=== PATIENT | female | born 1985 | race African-American/Black ===

== ENCOUNTER 2016-08-12 17:53 | Emergency (ER) | payer OTHER ==
[~2016-08-12] VITALS: Ht 175.3 cm; Wt 61.7 kg
[~2016-08-12 17:53] MED LIST: ONDA4TAB10 PO; PANT40TA5 PO
[2016-08-12 18:09] VITALS: BP 115/60
--- NOTE | 2016-08-12 19:09 | PHYS DOC ---
Past Medical History Past Medical History: Asthma, GERD, IBS, Other Additional Past Medical Histor: acid reflux, stomach issues Past Surgical History: Appendectomy, Hysterectomy Additional Past Surgical Histo: d&C Alcohol Use: None Drug Use: None Adult General Chief Complaint Chief Complaint: SKIN RASH/ABSCESS [facility] Patient is a 31 year old female presents to the emergency department stating that she woke up the swelling with a generalized rash throughout her body. She states that she has not changed any detergents soaps denies any change in clothing that has not been washed. Patient states she's had no new clothing or new cologne. He denies any shortness of air difficulty breathing. She states that she did take some Benadryl which seemed to have helped with the rash. Review of Systems Review of Systems Constitutional: Denies fever or chills [] Eyes: Denies change in visual acuity, redness, or eye pain [] HENT: Denies nasal congestion or sore throat [] Respiratory: Denies cough or shortness of breath [] Cardiovascular: No additional information not addressed in HPI [] GI: Denies abdominal pain, nausea, vomiting, bloody stools or diarrhea [] : Denies dysuria or hematuria [] Musculoskeletal: Denies back pain or joint pain [] Integument: generalized rash denies skin lesions [] Neurologic: Denies headache, focal weakness or sensory changes [] Allergies Allergies Allergies Coded Allergies Type Severity Reaction Last Updated Verified morphine Allergy Severe Anaphylaxis 05/25/13 Yes Physical Exam Physical Exam Constitutional: Well developed, well nourished, no acute distress, non-toxic appearance. [] HENT: Normocephalic, atraumatic, bilateral external ears normal, oropharynx moist, no oral exudates, nose normal. [] Eyes: PERRLA, EOMI, conjunctiva normal, no discharge. [] Neck: Normal range of motion, no tenderness, supple, no stridor. [] Cardiovascular:Heart rate regular rhythm, no murmur [] Lungs & Thorax: Bilateral breath sounds clear to auscultation [] Skin: Warm, dry, no erythema, patient was noted to have a red papular type rash throughout the body. No drainage or discharge noted from the areas. Back: No tenderness Extremities: No tenderness, no cyanosis, no clubbing, ROM intact, no edema. [] Neurologic: Alert and oriented X 3, normal motor function, normal sensory function, no focal deficits noted. [] Psychologic: Affect normal, judgement normal, mood normal. [] Current Patient Data Vital Signs Vital Signs Date Time Temp Pulse Resp B/P Pulse Ox O2 Delivery O2 Flow Rate FiO2 08/12/16 18:09 98.1 80 18 115/60 100 Room Air 98.1 EKG EKG [] Radiology/Procedures Radiology/Procedures [] Course & Med Decision Making Course & Med Decision Making Pertinent Labs and Imaging studies reviewed. (See chart for details) We'll have patient continue using the Benadryl at home 25 mg every 4-6 hours for itching she was instructed this medication will cause drowsiness do not take any be alert and oriented. Patient will also be provided with prednisone 40 mg daily for the next 7 days. Recommended following up with her primary care physician. Patient agrees with discharge instructions treatment regimens and follow-up recommendations. Since symptoms to return back to emergency department as been provided. Patient will be discharged home in stable condition. [] Dragon Disclaimer Dragon Disclaimer This electronic medical record was generated, in whole or in part, using a voice recognition dictation system. Departure Departure Impression: Primary Impression: Contact dermatitis Disposition: HOME, SELF-CARE Condition: STABLE Referrals: NO PCP (PCP) Patient Instructions: Contact Dermatitis, [id number] Additional Instructions: You've been evaluated for your rash. You have had contact dermatitis of unknown origin. Benadryl 25 mg every 4-6 hours. This medication will cause drowsiness do not take any be alert and oriented. Prednisone as prescribed. Keep the areas cool clean and dry. Follow-up to primary care physician next week. Return back to emergency department sign symptoms of become worse. Scripts Prednisone 20 Mg [id number] Mg PO DAILY #14 TAB Prov:OLEGARIO HOLLEY APRN 08/12/16 OLEGARIO HOLLEY APRN Aug 12, 2016 19:09
[2016-08-12] MEDS ORDERED: PRED20TA PO (19:14)
== END 2016-08-12 19:21 | disposition home or self-care (01) ==
LOC: ER 17:53
DX: L25.9 Unspecified contact dermatitis, unspecified cause (principal); K58.9 Irritable bowel syndrome, unspecified; K21.9 Gastro-esophageal reflux disease without esophagitis; J45.909 Unspecified asthma, uncomplicated; Z88.5 Allergy status to narcotic agent
CPT/HCPCS: 99283

== ENCOUNTER 2017-01-03 13:58 | Emergency (ER) | payer OTHER ==
[~2017-01-03] VITALS: Ht 172.7 cm; Wt 60.8 kg
[~2017-01-03 13:58] MED LIST changes: +PRED20TA PO
[2017-01-03 14:10] VITALS: BP 107/67
[2017-01-03] MEDS ORDERED: CYCL10TA2 PO (14:47)
--- NOTE | 2017-01-03 14:47 | PHYS DOC ---
Past Medical History Past Medical History: Asthma, GERD, IBS, Other Additional Past Medical Histor: acid reflux, stomach issues Past Surgical History: Appendectomy, Hysterectomy, Other Additional Past Surgical Histo: d&C Alcohol Use: None Drug Use: None Adult General Chief Complaint Chief Complaint: Neck Pain [facility] HPI Patient is a 31 year old female presents to the emergency department stating that she tried to lift weights with her son when she felt a pull in her neck. She states she's been unable to turn her head to the left she is able to turn her head slightly to the right. She states that she is unable to put her head completely back or put her chin to her chest. She denies fever, chills or any nausea or vomiting. She denies any light sensitivity. She denies any nausea vomiting. She does state she took some Excedrin that seemed to have helped her headache. Patient states that she has not taken anything else for pain and discomfort. Denies any numbness or tingling in her lower extremities. Review of Systems Review of Systems Constitutional: Denies fever or chills [] Eyes: Denies change in visual acuity, redness, or eye pain [] HENT: Denies nasal congestion or sore throat [] Respiratory: Denies cough or shortness of breath [] Cardiovascular: No additional information not addressed in HPI [] GI: Denies abdominal pain, nausea, vomiting, bloody stools or diarrhea [] : Denies dysuria or hematuria [] Musculoskeletal: Complaint of neck pain and discomfort denies any joint pain Integument: Denies rash or skin lesions [] Neurologic: Denies headache, focal weakness or sensory changes [] Endocrine: Denies polyuria or polydipsia [] Allergies Allergies Allergies Coded Allergies Type Severity Reaction Last Updated Verified morphine Allergy Severe Anaphylaxis 05/25/13 Yes Physical Exam Physical Exam Constitutional: Well developed, well nourished, no acute distress, non-toxic appearance. [] HENT: Normocephalic, atraumatic, bilateral external ears normal, oropharynx moist, no oral exudates, nose normal. [] Eyes: PERRLA, EOMI, conjunctiva normal, no discharge. [] Neck: Normal range of motion, no tenderness, supple, no stridor. [] Cardiovascular:Heart rate regular rhythm, no murmur [] Lungs & Thorax: Bilateral breath sounds clear to auscultation [] Skin: Warm, dry, no erythema, no rash. [] Back: No cervical spine tenderness noted and no crepitus no deformities. Patient did have tenderness on bilateral paraspinal areas. Patient was able to turn her head slightly to the right. She declined to try to turn her head to the left. She declined to take tip her head back or place her chin to her chest. Patient with equal guide changer noted bilaterally. Upper extremity radial pulses are 2+. Cap refill brisk less than 2 seconds. Extremities: No tenderness, no cyanosis, no clubbing, ROM intact, no edema. [] Neurologic: Alert and oriented X 3, normal motor function, normal sensory function, no focal deficits noted. [] Psychologic: Affect normal, judgement normal, mood normal. [] Current Patient Data Vital Signs Vital Signs Date Time Temp Pulse Resp B/P (MAP) Pulse Ox O2 Delivery O2 Flow Rate FiO2 01/03/17 14:10 98.0 76 18 97 Room Air 98.0 EKG EKG [] Radiology/Procedures Radiology/Procedures [] Course & Med Decision Making Course & Med Decision Making Pertinent Labs and Imaging studies reviewed. (See chart for details) Patient has been accompanied to the emergency Department with 4 children. Children are rowdy and acting out in the emergency department. Patient does not have any increase headache pain and discomfort with the activity. Patient will be provided with Flexeril. She was instructed this medication will cause drowsiness do not take any be alert and oriented. Patient will be provided with a prescription to take at home. Recommended ibuprofen 800 mg every 8 hours with food stop taking few develop an upset stomach. Patient will be discharged home in stable condition with recommendations to follow-up with the primary care physician in the next 5-7 days. Signs and symptoms to return back to emergency parents been provided. All questions and concerns have been answered at patient' s bedside. [] Dragon Disclaimer Dragon Disclaimer This electronic medical record was generated, in whole or in part, using a voice recognition dictation system. Departure Departure Impression: Primary Impression: Acute torticollis Disposition: HOME, SELF-CARE Condition: STABLE Referrals: NO PCP (PCP) Patient Instructions: Torticollis, Acute Additional Instructions: Activity as tolerated. Medication as prescribed. Ibuprofen 800 mg every 8 hours with food stop taking few develop an upset stomach. Flexeril will cause drowsiness do not take any be alert and oriented. Ice packs on 20 minutes off 20 minutes several times a day. Follow-up to primary care physician in the next 7-10 days. Return back to emergency prior signs and symptoms of become worse. Scripts Cyclobenzaprine Hcl (CYCLOBENZAPRINE HCL) 10 Mg Tablet 1 TAB PO TID Y for MUSCLE SPASMS, #30 TAB Prov: OLEGARIO HOLLEY APRN 01/03/17 OLEGARIO HOLLEY APRN Jan 03, 2017 14:47
[2017-01-03] MEDS ORDERED: CYCLOBENZAPRINE 10 MG TABLET. PO ONE (15:00)
== END 2017-01-03 15:04 | disposition home or self-care (01) ==
LOC: ER 13:58
DX: M43.6 Torticollis (principal); J45.909 Unspecified asthma, uncomplicated; K21.9 Gastro-esophageal reflux disease without esophagitis; K58.9 Irritable bowel syndrome, unspecified; Z90.49 Acquired absence of other specified parts of digestive tract; Z90.710 Acquired absence of both cervix and uterus; Z88.5 Allergy status to narcotic agent
CPT/HCPCS: 99283

== ENCOUNTER 2017-11-26 08:35 | Emergency (ER) | payer OTHER ==
[2017-11-26] MEDS: IV NORMAL SALINE 1000ML BAG 1,000 ML IV (09:11)
[2017-11-26] MEDS: fentaNYL PF VIAL 100 MCG/2 ML VIAL IV ×2 (09:11→10:16)
[2017-11-26 09:12] LABS: ADD MAN DIFF? NO
[2017-11-26] MEDS: DICYCLOMINE HCL 10 MG CAPSULE PO (09:12)
[2017-11-26] MEDS: ONDANSETRON PF 4 MG/2 ML VIAL. IV ×2 (09:12→10:16)
[2017-11-26] MEDS: PANTOPRAZOLE IV PUSH 40 MG VIAL. IVP (09:12)
[2017-11-26 09:18] LABS: BASO % 0 % (0-3); BILIRUBIN,URINE NEGATIVE (NEG); CLARITY,URINE CLEAR; COLOR,URINE YELLOW; EOS % 0 % (0-3); GLUCOSE,URINE NEGATIVE (NEG); HEMATOCRIT 38.8 % (36.0-47.0); HEMOGLOBIN 13.3 g/dL (12.0-15.5); LYMPH % 11 % (24-48); MEAN CORPUSCULAR HEMOGLOBIN 33 pg (25-35); MEAN CORPUSCULAR HGB CONC 34 g/dL (31-37); MEAN CORPUSCULAR VOLUME 97 fL (79-100); MONO # 0.4 x10^3/uL (0.0-1.1); MONO % 4 % (0-9); NEUT # 7.8 x10^3uL (1.8-7.7); NEUT % 84 % (31-73); NITRITE,URINE NEGATIVE (NEG); PH,URINE 8.5; PLATELET COUNT 269 x10^3/uL (140-400); PROTEIN,URINE 100 mg/dL (NEG-TRACE); RED BLOOD COUNT 4.02 x10^6/uL (3.50-5.40); RED CELL DISTRIBUTION WIDTH 13.4 % (11.5-14.5); UROBILINOGEN,URINE 0.2 mg/dL (0.2 mg/dL); WHITE BLOOD COUNT 9.2 x10^3/uL (4.0-11.0)
[2017-11-26 09:25] LABS: ANION GAP 13 (6-14); BLOOD UREA NITROGEN 11 mg/dL (7-20); BUN/CREATININE RATIO 12 (6-20); CALCIUM 9.6 mg/dL (8.5-10.1); CARBON DIOXIDE 21 mmol/L (21-32); CHLORIDE 106 mmol/L (98-107); CREATININE 0.9 mg/dL (0.6-1.0); GFR 86.7; GLUCOSE 152 mg/dL (70-99); POTASSIUM 3.5 mmol/L (3.5-5.1); SODIUM 140 mmol/L (136-145)
[2017-11-26 09:26] LABS: BACTERIA,URINE MODERATE /HPF (0-FEW); SQUAMOUS EPITHELIAL CELL,UR OCC /LPF
[2017-11-26 09:28] LABS: ETHANOL < 10 mg/dL (0-10)
[2017-11-26 09:31] LABS: ALBUMIN 4.3 g/dL (3.4-5.0); ALBUMIN/GLOBULIN RATIO 1.2 (1.0-1.7); ALK PHOS 69 U/L (46-116); ALT (SGPT) 36 U/L (14-59); AST (SGOT) 27 U/L (15-37); LIPASE 77 U/L (73-393); TOTAL BILIRUBIN 0.6 mg/dL (0.2-1.0); TOTAL PROTEIN 7.8 g/dL (6.4-8.2)
[2017-11-26 09:34] LABS: BARBITURATES NEG (NEG); BENZODIAZEPINES NEG (NEG); CANNABINOIDS POS (NEG); COCAINE NEG (NEG); METHADONE NEG (NEG); OPIATES NEG (NEG); PHENCYCLIDINE NEG (NEG)
[2017-11-26 09:37] LABS: AMPHETAMINE/METHAMPHETAMINE NEG (NEG); ETHANOL, URINE NEG (NEG)
[2017-11-26] MEDS: KETOROLAC 30 MG/ML INJ. IV (10:17)
== END 2017-11-26 11:22 | disposition home or self-care (01) ==
LOC: ER 11:22
DX: N39.0 Urinary tract infection, site not specified (principal); R19.7 Diarrhea, unspecified; R11.2 Nausea with vomiting, unspecified; K21.9 Gastro-esophageal reflux disease without esophagitis; J45.909 Unspecified asthma, uncomplicated; K58.9 Irritable bowel syndrome, unspecified; Z90.49 Acquired absence of other specified parts of digestive tract; Z90.710 Acquired absence of both cervix and uterus; Z88.5 Allergy status to narcotic agent
CPT/HCPCS: 36415; 76700; 80053; 80307; 81001; 83690; 85025; 96361; 96365; 96375; 96376; 99285-25; C9113; G0480; J0690; J1885; J2405; J3010; J7030

== ENCOUNTER 2018-02-21 15:45 | Emergency (ER) | payer OTHER ==
[~2018-02-21] VITALS: Ht 175.3 cm; Wt 59.0 kg
[2018-02-21 15:45] VITALS: BP 123/83
[~2018-02-21 15:45] MED LIST changes: +CEPH500T PO; +CYCL10TA2 PO; +IBUP-1060 PO; +ONDA4TAB10 SL
[2018-02-21] MEDS ORDERED: IV NORMAL SALINE 1000ML BAG 1,000 ML IV ONE (16:15)
[2018-02-21] MEDS ORDERED: PANTOPRAZOLE IV PUSH 40 MG VIAL. IVP ONE (16:15)
[2018-02-21] MEDS ORDERED: DICYCLOMINE HCL 10 MG CAPSULE PO ONE (16:15)
[2018-02-21] MEDS ORDERED: PROCHLORPERAZINE 10 MG/2 ML VIAL. IV ONE (16:15)
[2018-02-21] MEDS ORDERED: KETOROLAC 30 MG/ML VIAL. IV ONE (16:15)
--- NOTE | 2018-02-21 16:16 | PHYS DOC ---
Past Medical History Past Medical History: Asthma, GERD, IBS, Other Additional Past Medical Histor: "stomach issues" Past Surgical History: Appendectomy, Hysterectomy, Other Additional Past Surgical Histo: d&C Alcohol Use: None Drug Use: None Adult General Chief Complaint Chief Complaint: ABDOMINAL PAIN [facility] HPI Patient is a 33 year old female with history of asthma, IBS, acid reflex, appendectomy, hysterectomy who presents today complaining of 7 out of 10 bilateral lower abdominal pain described as cramping that began at 4 AM this morning. Patient denies the pain waking her up. She is also complaining of nausea but no vomiting. Denies any diarrhea. Patient denies any fever. Patient states she has history of chronic abdominal pain due to IBS and follows up with a specialist at [facility]. She states she was put on new medications unknown name recently. Review of Systems Review of Systems Constitutional: Denies fever or chills [] Eyes: Denies change in visual acuity, redness, or eye pain [] HENT: Denies nasal congestion or sore throat [] Respiratory: Denies cough or shortness of breath [] Cardiovascular: No additional information not addressed in HPI [] GI: Reports abdominal pain with vomiting, denies bloody stools or diarrhea [] : Denies dysuria or hematuria [] Musculoskeletal: Denies back pain or joint pain [] Integument: Denies rash or skin lesions [] Neurologic: Denies headache, focal weakness or sensory changes [] All other systems were reviewed and found to be within normal limits, except as documented in this note. Current Medications Current Medications Current Medications Medications (Trade) Dose Ordered Sig/Wilfredo Start Time Stop Time Status Last Admin Dose Admin Dicyclomine HCl (Bentyl) 20 mg 1X ONCE 02/21/18 16:15 02/21/18 16:16 DC 02/21/18 16:19 20 MG Info (CONTRAST GIVEN -- Rx MONITORING) 1 each PRN DAILY PRN 02/21/18 17:00 02/23/18 16:59 Iohexol (Omnipaque 300 Mg/ml) 75 ml 1X ONCE 02/21/18 17:00 02/21/18 17:01 DC 02/21/18 17:05 75 ML Ketorolac Tromethamine (Toradol 30mg Vial) 30 mg 1X ONCE 02/21/18 16:15 02/21/18 16:16 DC 02/21/18 16:20 30 MG Pantoprazole Sodium (PROTONIX VIAL for IV PUSH) 40 mg 1X ONCE 02/21/18 16:15 02/21/18 16:16 DC 02/21/18 16:19 40 MG Prochlorperazine Edisylate (Compazine) 10 mg 1X ONCE 02/21/18 16:15 02/21/18 16:16 DC 02/21/18 16:19 10 MG Sodium Chloride 1,000 ml @ 1,000 mls/hr 1X ONCE 02/21/18 16:15 02/21/18 17:14 DC 02/21/18 16:20 1,000 MLS/HR Allergies Allergies Allergies Coded Allergies Type Severity Reaction Last Updated Verified morphine Allergy Severe Anaphylaxis 05/25/13 Yes Physical Exam Physical Exam Constitutional: Well developed, well nourished, no acute distress, non-toxic appearance. [] HENT: Normocephalic, atraumatic, bilateral external ears normal, oropharynx moist, no oral exudates, nose normal. [] Eyes: PERRLA, EOMI, conjunctiva normal, no discharge. [] Neck: Normal range of motion, no tenderness, supple, no stridor. [] Cardiovascular:Heart rate regular rhythm, no murmur [] Lungs & Thorax: Bilateral breath sounds clear to auscultation [] Abdomen: Bowel sounds normal, soft, no tenderness, no masses, no pulsatile masses. [] Skin: Warm, dry, no erythema, no rash. [] Back: No tenderness, no CVA tenderness. [] Extremities: No tenderness, no cyanosis, no clubbing, ROM intact, no edema. [] Neurologic: Alert and oriented X 3, normal motor function, normal sensory function, no focal deficits noted. [] Psychologic: Affect normal, judgement normal, mood normal. [] Current Patient Data Vital Signs Vital Signs Date Time Temp Pulse Resp B/P (MAP) Pulse Ox O2 Delivery O2 Flow Rate FiO2 02/21/18 15:45 98.0 100 20 123/83 (96) 98 Room Air 98.0 Lab Values Laboratory Tests Test 02/21/18 15:54 02/21/18 16:01 Urine Collection Type Unknown Urine Color Mireille Urine Clarity Clear Urine pH 6.0 Urine Specific [place] 1.025 Urine Protein Negative mg/dL (NEG-TRACE) Urine Glucose (UA) Negative mg/dL (NEG) Urine Ketones (Stick) Negative mg/dL (NEG) Urine Blood Negative (NEG) Urine Nitrite Negative (NEG) Urine Bilirubin Small (NEG) Urine Urobilinogen Dipstick 1.0 mg/dL (0.2 mg/dL) Urine Leukocyte Esterase Small (NEG) Urine RBC 0 /HPF (0-2) Urine WBC 1-4 /HPF (0-4) Urine Squamous Epithelial Cells Mod /LPF Urine Bacteria Few /HPF (0-FEW) Urine Mucus Mod /LPF Urine Opiates Screen Neg (NEG) Urine Methadone Screen Neg (NEG) Urine Barbiturates Neg (NEG) Urine Phencyclidine Screen Neg (NEG) Urine Amphetamine/Methamphetamine Neg (NEG) Urine Benzodiazepines Screen Neg (NEG) Urine Cocaine Screen Neg (NEG) Urine Cannabinoids Screen Pos (NEG) Urine Ethyl Alcohol Neg (NEG) White Blood Count 17.0 x10^3/uL (4.0-11.0) H Red Blood Count 4.03 x10^6/uL (3.50-5.40) Hemoglobin 13.3 g/dL (12.0-15.5) Hematocrit 39.0 % (36.0-47.0) Mean Corpuscular Volume 97 fL (79-100) Mean Corpuscular Hemoglobin 33 pg (25-35) Mean Corpuscular Hemoglobin Concent 34 g/dL (31-37) Red Cell Distribution Width 13.6 % (11.5-14.5) Platelet Count 273 x10^3/uL (140-400) Neutrophils (%) (Auto) 81 % (31-73) H Lymphocytes (%) (Auto) 11 % (24-48) L Monocytes (%) (Auto) 8 % (0-9) Eosinophils (%) (Auto) 0 % (0-3) Basophils (%) (Auto) 0 % (0-3) Neutrophils # (Auto) 13.8 x10^3uL (1.8-7.7) H Lymphocytes # (Auto) 1.8 x10^3/uL (1.0-4.8) Monocytes # (Auto) 1.3 x10^3/uL (0.0-1.1) H Eosinophils # (Auto) 0.0 x10^3/uL (0.0-0.7) Basophils # (Auto) 0.0 x10^3/uL (0.0-0.2) Segmented Neutrophils % 83 % (35-66) H Band Neutrophils % 3 % (0-9) Lymphocytes % 8 % (24-48) L Monocytes % 6 % (0-10) Platelet Estimate Adequate (ADEQUATE) Sodium Level 136 mmol/L (136-145) Potassium Level 4.1 mmol/L (3.5-5.1) Chloride Level 101 mmol/L (98-107) Carbon Dioxide Level 28 mmol/L (21-32) Anion Gap 7 (6-14) Blood Urea Nitrogen 16 mg/dL (7-20) Creatinine 0.8 mg/dL (0.6-1.0) Estimated GFR (Cockcroft-Gault) 98.8 BUN/Creatinine Ratio 20 (6-20) Glucose Level 104 mg/dL (70-99) H Calcium Level 9.4 mg/dL (8.5-10.1) Total Bilirubin 0.2 mg/dL (0.2-1.0) Aspartate Amino Transferase (AST) 21 U/L (15-37) Alanine Aminotransferase (ALT) 68 U/L (14-59) H Alkaline Phosphatase 72 U/L (46-116) Total Protein 7.9 g/dL (6.4-8.2) Albumin 3.9 g/dL (3.4-5.0) Albumin/Globulin Ratio 1.0 (1.0-1.7) Ethyl Alcohol Level < 10 mg/dL (0-10) Laboratory Tests 02/21/18 16:01 Laboratory Tests 02/21/18 16:01 EKG EKG [] Radiology/Procedures Radiology/Procedures []PROCEDURE: CT ABD PELV W/ IV CONTRST ONLY CT Abdomen and Pelvis With Intravenous Contrast: History: Chronic abdominal pain. Comparison: CT abdomen pelvis May 27, 2009. Technique: After administration of intravenous contrast, 75 mL Omnipaque-300, CT of the abdomen and pelvis was performed. Exposure: One or more of the following individualized dose reduction techniques were utilized for this examination: 1. Automated exposure control 2. Adjustment of the mA and/or kV according to patient size 3. Use of iterative reconstruction technique Findings: Evaluation of enteric structures may be limited by lack of oral contrast. Liver, spleen, pancreas, gallbladder, and bilateral adrenal glands are unremarkable. Bilateral kidneys enhance symmetrically. No bowel obstruction or inflammation is identified. Appendix is absent. Uterus is absent. Urinary bladder is unremarkable. No free air or free fluid is seen in the abdomen or pelvis. Perineal jewelry is seen. Impression: 1. No acute abnormality identified in the abdomen or pelvis. Electronically signed by: Cristhian Solano MD (02/21/2018 5:17 PM) [facility] DICTATED and SIGNED BY: CRISTHIAN SOLANO MD DATE: 02/21/181713 Course & Med Decision Making Course & Med Decision Making Pertinent Labs and Imaging studies reviewed. (See chart for details) This is a 33-year-old female patient presenting to the ED today with abdominal pain with vomiting that began this morning. Patient has history of chronic abdominal pain due to IBS. CBC with a WBC of 17.0, CMP with ALT of [address] of the abdomen and pelvic is negative for any acute findings. Urine analysis was noted for small amount of leukocytes and moderate amount of squamous cell epithelium. This is a contaminated specimen. Urine was sent for culture. Patient was discharged with Zofran and dicyclomine. Instructed to follow-up with her own specialist at [facility] as soon as possible. Patient's symptoms are well controlled right now with nausea medicine as well as Toradol. Dragon Disclaimer Dragon Disclaimer This electronic medical record was generated, in whole or in part, using a voice recognition dictation system. Departure Departure Impression: Primary Impression: Nausea and vomiting Additional Impression: Abdominal pain Disposition: 01 HOME, SELF-CARE Condition: STABLE Referrals: UNKNOWN PCP NAME (PCP) Follow-up with your specialist at [facility] as soon as possible Patient Instructions: Abdominal Pain, Nausea and Vomiting Additional Instructions: You were evaluated in the emergency room for abdominal pain with vomiting. Your work up in the emergency room was negative for any acute findings. Your urine was noted for small amount of infection. This specimen appears contaminated. We will culture the urine, we will call you if it grows infection and order you antibiotics. In the meantime take the prescribed medications as ordered. Follow- up with your own specialist at [facility] as soon as you can. Scripts Ondansetron (ZOFRAN ODT) 4 Mg Tab.rapdis 1 TAB SL Q8HRS, #15 TAB Prov: MUTAISHAAJEAN SAMPLE CLERK 02/21/18 Dicyclomine Hcl (DICYCLOMINE HCL) 20 Mg Tablet 1 TAB PO TID, #30 TAB 1 Refill Prov: JEAN OTERO APRN 02/21/18 Problem Qualifiers Primary Impression: Nausea and vomiting Vomiting type: unspecified Vomiting Intractability: unspecified Qualified Codes: R11.2 - Nausea with vomiting, unspecified Additional Impression: Abdominal pain Abdominal location: lower abdomen, unspecified Qualified Codes: R10.30 - Lower abdominal pain, unspecified FUNMILAYOSANTAJEAN GRICEL Feb 21, 2018 16:16
[2018-02-21 16:24] LABS: BASO % 0 % (0-3); EOS % 0 % (0-3); HEMOGLOBIN 13.3 g/dL (12.0-15.5); LYMPH # 1.8 x10^3/uL (1.0-4.8); LYMPH % 11 % (24-48); MEAN CORPUSCULAR HEMOGLOBIN 33 pg (25-35); MEAN CORPUSCULAR HGB CONC 34 g/dL (31-37); MEAN CORPUSCULAR VOLUME 97 fL (79-100); MONO # 1.3 x10^3/uL (0.0-1.1); MONO % 8 % (0-9); NEUT # 13.8 x10^3uL (1.8-7.7); NEUT % 81 % (31-73); PLATELET COUNT 273 x10^3/uL (140-400); RED BLOOD COUNT 4.03 x10^6/uL (3.50-5.40); RED CELL DISTRIBUTION WIDTH 13.6 % (11.5-14.5)
[2018-02-21 16:27] LABS: BILIRUBIN,URINE SMALL (NEG); CLARITY,URINE CLEAR; COLOR,URINE AMBER; NITRITE,URINE NEGATIVE (NEG); PROTEIN,URINE NEGATIVE (NEG-TRACE)
[2018-02-21 16:31] LABS: CALCIUM 9.4 mg/dL (8.5-10.1); CREATININE 0.8 mg/dL (0.6-1.0); GFR 98.8; POTASSIUM 4.1 mmol/L (3.5-5.1)
[2018-02-21 16:32] LABS: SQUAMOUS EPITHELIAL CELL,UR MOD /LPF
[2018-02-21 16:33] LABS: BACTERIA,URINE FEW /HPF (0-FEW); RBC,URINE 0 /HPF (0-2)
[2018-02-21 16:34] LABS: BARBITURATES NEG (NEG); BENZODIAZEPINES NEG (NEG); CANNABINOIDS POS (NEG); COCAINE NEG (NEG); METHADONE NEG (NEG); OPIATES NEG (NEG); PHENCYCLIDINE NEG (NEG)
[2018-02-21 16:38] LABS: AMPHETAMINE/METHAMPHETAMINE NEG (NEG)
[2018-02-21 16:38] LABS: ALBUMIN 3.9 g/dL (3.4-5.0); TOTAL BILIRUBIN 0.2 mg/dL (0.2-1.0); TOTAL PROTEIN 7.9 g/dL (6.4-8.2)
[2018-02-21 16:55] LABS: % BANDS 3 % (0-9); % LYMPHS 8 % (24-48); % MONOS 6 % (0-10); % SEGS 83 % (35-66); PLT ESTIMATE ADEQUATE (ADEQUATE)
[2018-02-21] MEDS ORDERED: CONTRAST GIVEN. MC PRN (17:00)
[2018-02-21] MEDS ORDERED: IOHEXOL 300 MG/ML 100ML VIAL. IV ONE (17:00)
--- NOTE | 2018-02-21 17:20 | RAD ---
CT Abdomen and Pelvis With Intravenous Contrast: History: Chronic abdominal pain. Comparison: CT abdomen pelvis May 27, 2009. Technique: After administration of intravenous contrast, 75 mL Omnipaque-300, CT of the abdomen and pelvis was performed. Exposure: One or more of the following individualized dose reduction techniques were utilized for this examination: 1. Automated exposure control 2. Adjustment of the mA and/or kV according to patient size 3. Use of iterative reconstruction technique Findings: Evaluation of enteric structures may be limited by lack of oral contrast. Liver, spleen, pancreas, gallbladder, and bilateral adrenal glands are unremarkable. Bilateral kidneys enhance symmetrically. No bowel obstruction or inflammation is identified. Appendix is absent. Uterus is absent. Urinary bladder is unremarkable. No free air or free fluid is seen in the abdomen or pelvis. Perineal jewelry is seen. Impression: 1. No acute abnormality identified in the abdomen or pelvis. Electronically signed by: Cristhian Solano MD (02/21/2018 5:17 PM) [facility]
[2018-02-21] MEDS ORDERED: DICY20TA3 PO (17:38)
[2018-02-21] MEDS ORDERED: ONDA4TAB10 SL (17:38)
== END 2018-02-21 17:50 | disposition home or self-care (01) ==
LOC: ER 15:45
DX: G89.29 Other chronic pain (principal); R10.30 Lower abdominal pain, unspecified; R11.2 Nausea with vomiting, unspecified; K21.9 Gastro-esophageal reflux disease without esophagitis; J45.909 Unspecified asthma, uncomplicated; K58.9 Irritable bowel syndrome, unspecified; Z90.49 Acquired absence of other specified parts of digestive tract; Z90.710 Acquired absence of both cervix and uterus; Z88.5 Allergy status to narcotic agent
CPT/HCPCS: 36415; 74177; 80053; 80307; 81001; 85007; 85025; 87086; 96361; 96374; 96375; 99285; C9113; G0480; J0780; J1885; J7030; Q9967; G0479

== ENCOUNTER 2019-02-13 10:28 | Emergency (ER) | payer OTHER ==
[~2019-02-13] VITALS: Ht 175.3 cm; Wt 68.0 kg
[~2019-02-13 10:28] MED LIST changes: +DICY20TA3 PO; -PANT40TA5 PO; +PANT40TA77 PO
--- NOTE | 2019-02-13 11:27 | PHYS DOC ---
Past Medical History Past Medical History: Asthma, GERD, IBS, Other Additional Past Medical Histor: "stomach issues" Past Surgical History: Appendectomy, Hysterectomy, Other Additional Past Surgical Histo: d&C Alcohol Use: None Drug Use: None Adult General Chief Complaint Chief Complaint: HIP PAIN HPI HPI Patient is a 34-year-old female who presents to the emergency department for evaluation. She states that she fell down some stairs a couple of days ago and has been having some persistent left-sided hip pain, worse with movement. She is able to ambulate. She denies any other injuries. She denies any numbness or weakness. Palpation and ambulation worsen her pain. There are no alleviating factors to her symptoms. Review of Systems Review of Systems Constitutional: Denies fever or chills [] Eyes: Denies change in visual acuity, redness, or eye pain [] HENT: Denies nasal congestion or sore throat [] Respiratory: Denies cough or shortness of breath [] GI: Denies abdominal pain, nausea, vomiting, bloody stools or diarrhea [] : Denies dysuria or hematuria [] Musculoskeletal: Denies back pain or joint pain, except the left hip. [] Integument: Denies rash or skin lesions [] Neurologic: Denies headache, focal weakness or sensory changes [] Current Medications Current Medications Current Medications Medications (Trade) Dose Ordered Sig/Wilfredo Start Time Stop Time Status Last Admin Dose Admin Ibuprofen (Motrin) 600 mg 1X ONCE 02/13/19 12:00 02/13/19 12:01 DC 02/13/19 11:54 600 MG Allergies Allergies Allergies Coded Allergies Type Severity Reaction Last Updated Verified morphine Allergy Severe Anaphylaxis 05/25/13 Yes Physical Exam Physical Exam PHYSICAL EXAM: CONSTITUTIONAL: Well developed, well nourished HEAD: normocephalic, atraumatic EENT: PERRL, EOMI. Conjunctivae normal color, sclerae non-icteric; moist mucous membranes. NECK: Supple, non-tender; no meningismus. LUNGS: Lungs CTA, breathing even and unlabored. Normal air movement. HEART: Regular rate and rhythm, no murmur CHEST: No deformity; non-tender ABDOMEN: The abdomen is soft, and non-tender, no masses or bruits. EXTREM: There is mild tenderness to palpation of the left hip diffusely, there is normal range of motion, without any gross deformity, the patient is able to ambulate, without any significant difficulty. The remainder the extremities are atraumatic, with Normal ROM; no deformity, no calf tenderness. Normal pulses palpable in all extremities. There is no pedal edema. SKIN: No rash; no diaphoresis NEURO: Alert; normal speech and cognition; CN's grossly intact; strength grossly intact without focal deficit. BACK: No CVA TTP. Current Patient Data Vital Signs Vital Signs Date Time Temp Pulse Resp B/P (MAP) Pulse Ox O2 Delivery O2 Flow Rate FiO2 02/13/19 12:15 97.9 113 20 130/86 (101) 97 Room Air 97.9 EKG EKG [] Radiology/Procedures Radiology/Procedures PROCEDURE: HIP LEFT 2V WITH PELVIS AP view of the pelvis and two-view study of the left hip Clinical indications: Fall and pain. FINDINGS: No acute fracture or dislocation or lytic process is evident. No diastases of the symphysis pubis or either SI joint is seen. IMPRESSION: No acute osseous abnormality. [] Course & Med Decision Making Course & Med Decision Making Pertinent Imaging studies reviewed. (See chart for details) [] Dragon Disclaimer Dragon Disclaimer This electronic medical record was generated, in whole or in part, using a voice recognition dictation system. Departure Departure Impression: Primary Impression: Contusion, hip Disposition: 01 HOME, SELF-CARE Condition: STABLE Referrals: UNKNOWN PCP NAME (PCP) Patient Instructions: Contusion, Hip Injury, Hip Pain Additional Instructions: Ibuprofen 400-600 mg every 6 hours as needed for pain. NISHA BOBBY MD Feb 13, 2019 11:27
[2019-02-13] MEDS ORDERED: IBUPROFEN 200 MG TABLET. PO ONE (12:00)
--- NOTE | 2019-02-13 12:12 | RAD ---
AP view of the pelvis and two-view study of the left hip Clinical indications: Fall and pain. FINDINGS: No acute fracture or dislocation or lytic process is evident. No diastases of the symphysis pubis or either SI joint is seen. IMPRESSION: No acute osseous abnormality. Electronically signed by: Barrett Dwyer MD (02/13/2019 12:09 PM) [id number]
[2019-02-13 12:15] VITALS: BP 130/86
== END 2019-02-13 12:45 | disposition home or self-care (01) ==
LOC: ER 10:28
DX: S70.02XA Contusion of left hip, initial encounter (principal); J45.909 Unspecified asthma, uncomplicated; K21.9 Gastro-esophageal reflux disease without esophagitis; Z90.89 Acquired absence of other organs; Z90.710 Acquired absence of both cervix and uterus; Z88.5 Allergy status to narcotic agent; W10.9XXA Fall (on) (from) unspecified stairs and steps, initial encounter; Y93.89 Activity, other specified; Y92.89 Other specified places as the place of occurrence of the external cause; Y99.8 Other external cause status
CPT/HCPCS: 73502; 99284

== ENCOUNTER 2019-05-14 07:31 | Emergency (ER) | payer MEDICAID, OTHER ==
[~2019-05-14] VITALS: Ht 175.3 cm; Wt 72.6 kg
[2019-05-14 08:00] VITALS: BP 112/69
[2019-05-14] MEDS ORDERED: TRAM-48 PO (08:23)
[2019-05-14] MEDS ORDERED: AZIT250T PO (08:23)
[2019-05-14] MEDS ORDERED: BENZ100C PO (08:23)
[2019-05-14] MEDS ORDERED: NAPR-683 PO (08:25)
--- NOTE | 2019-05-14 08:25 | PHYS DOC ---
Past Medical History Past Medical History: Anxiety, Depression, IBS, Other Additional Past Medical Histor: CHRONIC STOMACH PROBLEMS,PTSD, Past Surgical History: Appendectomy, Hysterectomy Additional Past Surgical Histo: d&C Alcohol Use: None Drug Use: None Adult General Chief Complaint Chief Complaint: EARACHE/EAR PAIN HPI HPI Patient is a 34 year old with history of anxiety and depression, IBS, PTSD who presents with complaint of earache. Patient complaining of upper respiratory infection symptoms for one week with cough and congestion right ear pain for the last 2 days and rated her pain 10 over 10. Patient denies ear discharge, fever and chills, . Review of Systems Review of Systems Constitutional: Denies fever or chills [] Eyes: Denies change in visual acuity, redness, or eye pain [] HENT: Post nasal congestion and earache Respiratory: Reports cough Cardiovascular: No additional information not addressed in HPI [] GI: Denies abdominal pain, nausea, vomiting, bloody stools or diarrhea [] : Denies dysuria or hematuria [] Musculoskeletal: Denies back pain or joint pain [] Integument: Denies rash or skin lesions [] Neurologic: Denies headache, focal weakness or sensory changes [] Endocrine: Denies polyuria or polydipsia [] All other systems were reviewed and found to be within normal limits, except as documented in this note. Allergies Allergies Allergies Coded Allergies Type Severity Reaction Last Updated Verified morphine Allergy Severe Anaphylaxis 05/25/13 Yes Physical Exam Physical Exam Constitutional: Well developed, well nourished, no acute distress, non-toxic appearance. [] HENT: Normocephalic, atraumatic, right tympanic membrane erythema, oropharynx moist, no oral exudates, nose normal. [] Eyes: PERRLA, EOMI, conjunctiva normal, no discharge. [] Neck: Normal range of motion, no tenderness, supple, no stridor. [] Cardiovascular:Heart rate regular rhythm, no murmur [] Lungs & Thorax: Bilateral breath sounds clear to auscultation [] Abdomen: Bowel sounds normal, soft, no tenderness, no masses, no pulsatile masses. [] Skin: Warm, dry, no erythema, no rash. [] Back: No tenderness, no CVA tenderness. [] Extremities: No tenderness, no cyanosis, no clubbing, ROM intact, no edema. [] Neurologic: Alert and oriented X 3, normal motor function, normal sensory function, no focal deficits noted. [] Psychologic: Affect normal, judgement normal, mood normal. [] Current Patient Data Vital Signs Vital Signs Date Time Temp Pulse Resp B/P (MAP) Pulse Ox O2 Delivery O2 Flow Rate FiO2 05/14/19 08:00 98.3 103 16 112/69 (83) 95 Room Air 98.3 EKG EKG [] Radiology/Procedures Radiology/Procedures [] Course & Med Decision Making Course & Med Decision Making discharge: I've spoken with the patient and/or caregivers. I've explained the patient's condition, diagnosis and treatment plan based on information available to me at this time. I've answered the patient's and/or caregivers questions and addressed any concerns. The patient and/or caregivers have a good understanding the patient's diagnosis, condition and treatment plan as can be expected at this point. Vital signs have been stabilized. The patient's condition is stable for discharge from the emergency department. The patient will pursue further outpatient evaluation with her primary care provider or other designated consulting physician as outlined in the discharge instructions. Patient and/or caregivers are agreeable to this plan of care and follow-up instructions have been explained in detail. The patient and/or caregivers have received these instructions in written format and expressed understanding of these discharge instructions. The patient and her caregivers are aware that if any significant change in condition or worsening of symptoms should prompt him to immediately return to this of the closest emergency department. If an emergent department is not readily available I would encourage him to call 911. Izzy Disclaimer Serenaon Disclaimer This electronic medical record was generated, in whole or in part, using a voice recognition dictation system. Departure Departure Impression: Primary Impression: Right otitis media Additional Impression: Upper respiratory infection Disposition: HOME, SELF-CARE (at 0 [phone]) Condition: STABLE Referrals: NO PCP (PCP) Patient Instructions: Cough, Adult, Otitis Media, Adult, Upper Respiratory Infection, Adult Additional Instructions: Drink plenty of liquids Follow-up with your primary care physician in 3-5 days Return to ER if not getting better Thank you for visiting [facility]. We appreciate you trusting us with your care. If any additional problems come up don't hesitate to return to visit us. Please follow up with your primary care provider so they can plan additional care if needed and know about the problem that you had. If symptoms worsen come back to the Emergency Department. Any concerning symptoms that start such as chest pain, shortness of air, weakness or numbness on one side of the body, running high fevers or any other concerning symptoms return to the ER. Scripts Naproxen (NAPROSYN) 500 Mg Tablet 1 TAB PO BID for pain, #20 TAB Prov: ADRIANA SCHAFFER MD 05/14/19 Azithromycin (ZITHROMAX) 250 Mg Tablet 250 MG PO as directed for ANTI-BIOTIC, #6 TAB 0 Refills Take 2 PO x 1 days Then take 1 PO q 24 hour for the next 4 days Prov: ADRIANA SCHAFFER MD 05/14/19 Benzonatate (TESSALON PERLE) 100 Mg Capsule 1 CAP PO TID for cough, #21 CAP Prov: ADRIANA SCHAFFER MD 05/14/19 Problem Qualifiers Primary Impression: Right otitis media Otitis media type: unspecified Qualified Codes: H66.91 - Otitis media, unspecified, right ear Additional Impression: Upper respiratory infection URI type: unspecified URI Qualified Codes: J06.9 - Acute upper respiratory infection, unspecified ADRIANA SCHAFFER MD May 14, 2019 08:25
== END 2019-05-14 08:33 | disposition home or self-care (01) ==
LOC: ER 07:31
DX: H66.91 Otitis media, unspecified, right ear (principal); J06.9 Acute upper respiratory infection, unspecified; F41.9 Anxiety disorder, unspecified; F32.9 Major depressive disorder, single episode, unspecified; K58.9 Irritable bowel syndrome, unspecified; Z87.19 Personal history of other diseases of the digestive system; F43.10 Post-traumatic stress disorder, unspecified; Z90.89 Acquired absence of other organs; Z90.710 Acquired absence of both cervix and uterus; Z98.890 Other specified postprocedural states; Z88.6 Allergy status to analgesic agent
CPT/HCPCS: 99283

== ENCOUNTER 2020-06-25 20:39 | Emergency (ER) | payer MEDICAID ==
[~2020-06-25] VITALS: Ht 172.7 cm; Wt 81.8 kg
[~2020-06-25 20:39] MED LIST changes: +AZIT250T PO; +BENZ100C PO; +NAPR-683 PO; +TRAM-48 PO
--- NOTE | 2020-06-25 21:09 | PHYS DOC ---
Past Medical History Past Medical History: Anxiety, Depression, IBS, Other Additional Past Medical Histor: CHRONIC STOMACH PROBLEMS,PTSD, (OLEGARIO BARBOSA RECREATION FACILITY MANAGER) Past Surgical History: Appendectomy, Hysterectomy Additional Past Surgical Histo: d&C (OLEGARIO BARBOSA [employer]CREATION FACILITY MANAGER) Smoking Status: Never Smoker Alcohol Use: None Drug Use: None (OLEGARIO BARBOSA RECREATION FACILITY MANAGER) General Adult EDM: Chief Complaint: HAND PROBLEM HPI: HPI: Patient is a 35 year old female who presents with states a couple days ago awoke to right posterior hand at the fifth meta carpal area tenderness and when she tries to make a fist she cannot make a full fist because the fifth finger will not fully bend into the fist. Patient currently rates her hand pain a 5 out of 10 she is been taking ibuprofen. She states that the hand just throbs. She states that she did not injure it. She is left-handed so she states that she does not use the right hand lately. History is depression, anxiety, PTSD, IBS, appendectomy, D&C, hysterectomy. (OLEGARIO BARBOSA RECREATION FACILITY MANAGER) Review of Systems: Review of Systems: Constitutional: Denies fever or chills. [] Eyes: Denies change in visual acuity. [] HENT: Denies nasal congestion or sore throat. [] Respiratory: Denies cough or shortness of breath. [] Cardiovascular: Denies chest pain or edema. [] GI: Denies abdominal pain, nausea, vomiting, bloody stools or diarrhea. [] : Denies dysuria. [] Musculoskeletal: Denies back pain. + Right posterior hand joint pain. [] Integument: Denies rash. [] Neurologic: Denies headache, focal weakness or sensory changes. [] Endocrine: Denies polyuria or polydipsia. [] Lymphatic: Denies swollen glands. [] Psychiatric: Denies depression or anxiety. [] (OLEGARIO BARBOSA RECRE[employer] FACILITY MANAGER) Heart Score: Risk Factors: Risk Factors: DM, Current or recent (<one month) smoker, HTN, HLP, family history of CAD, obesity. Risk Scores: Score 0 - 3: 2.5% MACE over next 6 weeks - Discharge Home Score 4 - 6: 20.3% MACE over next 6 weeks - Admit for Clinical Observation Score 7 - 10: 72.7% MACE over next 6 weeks - Early Invasive Strategies (OLEGARIO BARBOSA APRN) Allergies: Allergies: Allergies Coded Allergies Type Severity Reaction Last Updated Verified morphine Allergy Severe Anaphylaxis 05/25/13 Yes (OLEGARIO BARBOSA APRN) Physical Exam: PE: Constitutional: Well developed, well nourished, no acute distress, non-toxic appearance. [] HENT: Normocephalic, atraumatic, bilateral external ears normal, oropharynx moist, no oral exudates, nose normal. [] Eyes: PERRLA, EOMI, conjunctiva normal, no discharge. [] Neck: Normal range of motion, no tenderness, supple, no stridor. [] Cardiovascular:Heart rate regular rhythm, no murmur [] Lungs & Thorax: Bilateral breath sounds clear to auscultation [] Abdomen: Bowel sounds normal, soft, no tenderness, no masses, no pulsatile masses. [] Skin: Warm, dry, no erythema, no rash. [] Back: No tenderness, no CVA tenderness. [] Extremities: Right posterior hand at fifth metacarpal tenderness, no cyanosis, no clubbing, right fifth finger ROM not intact, no edema. [] Neurologic: Alert and oriented X 3, normal motor function, normal sensory function, no focal deficits noted. [] Psychologic: Affect normal, judgement normal, mood normal. [] (OLEGARIO BARBOSA APRN) EKG: EKG: [] (OLEGARIO BARBOSA APRN) Radiology/Procedures: Radiology/Procedures: [] Impression: [facility] [address] [place] [address] IMAGING REPORT Signed PATIENT: JULIANNE AGUILAR ACCOUNT: [id number] : 1985 LOCATION: ER AGE: 35 SEX: F EXAM STATUS: REG ER ORD. PHYSICIAN: OLEGARIO BARBOSA APRN REASON: hand pain PROCEDURE: HAND RIGHT 3V XR HAND_RIGHT 3 VIEWS History: Reason: hand pain / Spl. Instructions: / History: Technique: 3 views right hand. Comparison: None. Findings: Normal alignment. No fracture. Soft tissues unremarkable. Impression: 1. No acute osseous abnormality. Electronically signed by: Felix Panda DO (06/25/2020 9:41 PM) [facility] DICTATED and SIGNED BY: FELIX PANDA DO DATE: 06/25/20 [id number] (OLEGARIO BARBOSA APRN) Course & Med Decision Making: Course & Med Decision Making Pertinent Labs and Imaging studies reviewed. (See chart for details) See HPI. Posterior 5th metacarpal of right hand tenderness. No swelling. When she goes to make a fist the left 5th finger will not bend with the fist. Radial pulse present. Cap refill less than 2 seconds. Denies numbness or tingling, skin color change, swelling, injury, or coolness to the extremity. Skin pink warm and dry. When patient bends the finger manually the finger does bounce back up. It does not seem to get stuck. Patient is given Decadron 10mg in the ED. She is placed in a Alumnafoam splint at the 5th digit and she can follow up with her PCP at . She will take Tylenol and Ibuprofen for pain. [] (OLEGARIO BARBOSA APRN) Dragon Disclaimer: Dragon Disclaimer: This electronic medical record was generated, in whole or in part, using a voice recognition dictation system. (OLEGARIO BARBOSA APRN) Departure Departure Impression: Primary Impression: Hand pain, right Disposition: 01 DC HOME SELF CARE/HOMELESS Condition: STABLE Referrals: NO PCP (PCP) BRITNEY KEARNS MD Patient Instructions: Medical Screening Exam Additional Instructions: Follow up with Primary care provider as soon as possible. Take medication as prescribed. Take Tylenol and Ibuprofen and for pain. Scripts Methylprednisolone (MEDROL) 4 Mg Tab.ds.pk 1 PKG PO UD, #1 PKG Prov: OLEGARIO BARBOSA APRN 06/25/20 Attending Signature Attending Signature I have reviewed the PA/EXECUTIVE MARKETING ASSISTANT's note and plan of care. I was available for consultation as needed during the patient's visit in the emergency department. I agree with the clinical impression, plan, and disposition. (AGUS HERNANDEZ DO) OLEGARIO BARBOSA APRN Jun 25, 2020 21:09 AGUS HERNANDEZ DO Jun 27, 2020 02:14
[2020-06-25] MEDS ORDERED: METH4TAB2 PO (21:27)
[2020-06-25] MEDS ORDERED: DEXAMETHASONE 4 MG TABLET PO SCH (21:30)
--- NOTE | 2020-06-25 21:44 | RAD ---
XR HAND_RIGHT 3 VIEWS History: Reason: hand pain / Spl. Instructions: / History: Technique: 3 views right hand. Comparison: None. Findings: Normal alignment. No fracture. Soft tissues unremarkable. Impression: 1. No acute osseous abnormality. Electronically signed by: Felix Panda DO (06/25/2020 9:41 PM) [facility]
[2020-06-25 22:00] VITALS: BP 120/82
== END 2020-06-25 22:00 | disposition home or self-care (01) ==
LOC: ER 20:39
DX: M79.641 Pain in right hand (principal); F43.10 Post-traumatic stress disorder, unspecified; K58.9 Irritable bowel syndrome, unspecified; Z88.5 Allergy status to narcotic agent
CPT/HCPCS: 29130; 73130; 99283

== ENCOUNTER 2021-05-25 12:45 | Emergency (ER) | payer MEDICAID ==
[~2021-05-25] VITALS: Ht 172.7 cm; Wt 76.6 kg
[~2021-05-25 12:45] MED LIST changes: +CYCL10TA19 PO; -CYCL10TA2 PO; +DICY20TA PO; -DICY20TA3 PO; +METH4TAB2 PO
[2021-05-25 13:12] VITALS: BP 116/67
[2021-05-25] MEDS ORDERED: IV NORMAL SALINE 1000ML BAG 1,000 ML IV ONE (13:45)
[2021-05-25] MEDS ORDERED: IBUPROFEN 100 MG/5 ML ORAL.SUSP. PO ONE (13:45)
[2021-05-25] MEDS ORDERED: ONDANSETRON PF 4 MG/2 ML VIAL. IVP ONE (13:45)
[2021-05-25 14:01] LABS: BILIRUBIN,URINE NEGATIVE (NEG); CLARITY,URINE CLEAR; COLOR,URINE YELLOW; NITRITE,URINE NEGATIVE (NEG); PH,URINE 5.5 (<5.0-8.0); PROTEIN,URINE NEGATIVE (NEG-TRACE); UROBILINOGEN,URINE 0.2 mg/dL (0.2 mg/dL)
[2021-05-25 14:07] LABS: BACTERIA,URINE MANY /HPF (0-FEW)
[2021-05-25 14:08] LABS: RBC,URINE 0 /HPF (0-2); TRICHOMONAS,URINE PRESENT
[2021-05-25 14:32] LABS: BASO % 1 % (0-3); EOS % 0 % (0-3); HEMATOCRIT 36.7 % (36.0-47.0); HEMOGLOBIN 12.7 g/dL (12.0-15.5); LYMPH # 0.7 x10^3/uL (1.0-4.8); LYMPH % 8 % (24-48); MEAN CORPUSCULAR HEMOGLOBIN 32 pg (25-35); MEAN CORPUSCULAR HGB CONC 35 g/dL (31-37); MEAN CORPUSCULAR VOLUME 92 fL (79-100); MONO # 0.8 x10^3/uL (0.0-1.1); MONO % 10 % (0-9); NEUT # 6.5 x10^3/uL (1.8-7.7); NEUT % 81 % (31-73); PLATELET COUNT 272 x10^3/uL (140-400); RED BLOOD COUNT 3.99 x10^6/uL (3.50-5.40); RED CELL DISTRIBUTION WIDTH 13.8 % (11.5-14.5); WHITE BLOOD COUNT 8.1 x10^3/uL (4.0-11.0)
[2021-05-25 16:08] LABS: INFLUENZA A PATIENT NEGATIVE (NEGATIVE); INFLUENZA B PATIENT NEGATIVE (NEGATIVE)
[2021-05-25 17:20] LABS: ALBUMIN 3.7 g/dL (3.4-5.0); ALBUMIN/GLOBULIN RATIO 0.8 (1.0-1.7); CALCIUM 8.5 mg/dL (8.5-10.1); CREATININE 0.9 mg/dL (0.6-1.0); GFR 84.8; POTASSIUM 3.6 mmol/L (3.5-5.1); TOTAL BILIRUBIN 0.3 mg/dL (0.2-1.0); TOTAL PROTEIN 8.1 g/dL (6.4-8.2)
[2021-05-25] MEDS ORDERED: DOXY100C3 PO (17:43)
[2021-05-25] MEDS ORDERED: CEPH500T PO (17:43)
[2021-05-25] MEDS ORDERED: METR-34 PO (17:43)
--- NOTE | 2021-05-25 17:43 | PHYS DOC ---
Past Medical History Past Medical History: Anxiety, Depression, IBS, Other Additional Past Medical Histor: CHRONIC STOMACH PROBLEMS,PTSD, Past Surgical History: Appendectomy, Hysterectomy Additional Past Surgical Histo: d&C Smoking Status: Never Smoker Alcohol Use: None Drug Use: None General Adult EDM: Chief Complaint: FLANK PAIN HPI: HPI: Patient is a 36-year-old female who presents emergency department complaint of 2 days of sore throat with bilateral ear pain. Denies recent fever or chills at home. Ports her daughter is having same symptoms. Patient also reports waking up this morning with left-sided flank pain that radiates to her back. Patient denies STI concerns, denies vaginal discharge, denies pressure or burning with urination, denies seeing blood in her urine. Patient denies constipation or abdominal discomfort. Patient denies pelvic discomfort. Patient denies rashes or lesions to her vagina. Patient denies taking medications at home for her symptoms. Patient reports she has been vaccinated for the COVID-19 virus. Kelly ent denies receiving the flu virus vaccination this season. Review of Systems: Review of Systems: 14 body systems of review of systems have been reviewed. See HPI for pertinent positives and negative responses, otherwise all other systems are negative, nonpertinent or noncontributory. Constitutional: Negative except as outlined in HPI above. Skin: Negative except as outlined in HPI above. Eyes: Negative except as outlined in HPI above. HENT: Negative except as outlined in HPI above. Respiratory: Negative except as outlined in HPI above. Cardiovascular: Negative except as outlined in HPI above. GI: Negative except as outlined in HPI above. : Negative except as outlined in HPI above. Musculoskeletal: Negative except as outlined in HPI above. Integument: Negative except as outlined in HPI above. Neurologic: Negative except as outlined in HPI above. Endocrine: Negative except as outlined in HPI above. Lymphatic: Negative except as outlined in HPI above. Psychiatric: Negative except as outlined in HPI above. Heart Score: C/O Chest Pain: No Risk Factors: Risk Factors: DM, Current or recent (<one month) smoker, HTN, HLP, family history of CAD, obesity. Risk Scores: Score 0 - 3: 2.5% MACE over next 6 weeks - Discharge Home Score 4 - 6: 20.3% MACE over next 6 weeks - Admit for Clinical Observation Score 7 - 10: 72.7% MACE over next 6 weeks - Early Invasive Strategies Current Medications: Current Medications Medications (Trade) Dose Ordered Sig/Wilfredo Start Time Stop Time Status Last Admin Dose Admin Ibuprofen (Children'S Motrin) 600 mg 1X ONCE 05/25/21 13:45 05/25/21 13:49 DC 05/25/21 13:45 600 MG Ondansetron HCl (Zofran) 4 mg 1X ONCE 05/25/21 13:45 05/25/21 13:49 DC 05/25/21 13:45 4 MG Sodium Chloride 1,000 ml @ 1,000 mls/hr 1X ONCE 05/25/21 13:45 05/25/21 14:44 DC 05/25/21 13:45 1,000 MLS/HR Allergies: Allergies: Allergies Coded Allergies Type Severity Reaction Last Updated Verified morphine Allergy Severe Anaphylaxis 05/25/13 Yes Physical Exam: PE: Constitutional: Well developed, well nourished, no acute distress, non-toxic appearance. 36-year-old female in no apparent distress. HENT: Normocephalic, atraumatic. Oropharynx moist, pink, no deep tissue infectious process appreciated, no laryngeal edema, no postnasal drip appreciated, bilateral TMs within normal limits, intact. No lymphadenopathy of the head and neck appreciated. Eyes: Conjunctiva normal, no discharge. Neck: Normal range of motion, no stridor. Cardiovascular: No cyanosis appreciated, distal cap refill less than 2 seconds. Lungs & Thorax: Patient is in no respiratory distress, no audible adventitious lung sounds appreciated. Lung sounds clear to auscultate all lung quigley. Abdomen: Nontender, no abnormalities noted. Skin: Warm, dry, no erythema, no rash. Back: No tenderness, no deformities. Extremities: No tenderness, no cyanosis, no clubbing, ROM intact, no edema. Neurologic: Alert and oriented X 3, normal motor function, normal sensory function, no focal deficits noted. Psychologic: Affect normal, judgement normal, mood normal. Current Patient Data: Labs: Laboratory Tests Test 05/25/21 13:05 05/25/21 14:24 05/25/21 15:15 Urine Collection Type Unknown Urine Color Yellow Urine Clarity Clear Urine pH 5.5 (<5.0-8.0) Urine Specific [place] >=1.030 (1.000-1.030) Urine Protein Negative mg/dL (NEG-TRACE) Urine Glucose (UA) Negative mg/dL (NEG) Urine Ketones (Stick) Negative mg/dL (NEG) Urine Blood Negative (NEG) Urine Nitrite Negative (NEG) Urine Bilirubin Negative (NEG) Urine Urobilinogen Dipstick 0.2 mg/dL (0.2 mg/dL) Urine Leukocyte Esterase Small (NEG) Urine RBC 0 /HPF (0-2) Urine WBC 5-10 /HPF (0-4) Urine Squamous Epithelial Cells Mod /LPF Urine Bacteria Many /HPF (0-FEW) Urine Mucus Marked /LPF Urine Trichomonas Present White Blood Count 8.1 x10^3/uL (4.0-11.0) Red Blood Count 3.99 x10^6/uL (3.50-5.40) Hemoglobin 12.7 g/dL (12.0-15.5) Hematocrit 36.7 % (36.0-47.0) Mean Corpuscular Volume 92 fL (79-100) Mean Corpuscular Hemoglobin 32 pg (25-35) Mean Corpuscular Hemoglobin Concent 35 g/dL (31-37) Red Cell Distribution Width 13.8 % (11.5-14.5) Platelet Count 272 x10^3/uL (140-400) Neutrophils (%) (Auto) 81 % (31-73) H Lymphocytes (%) (Auto) 8 % (24-48) L Monocytes (%) (Auto) 10 % (0-9) H Eosinophils (%) (Auto) 0 % (0-3) Basophils (%) (Auto) 1 % (0-3) Neutrophils # (Auto) 6.5 x10^3/uL (1.8-7.7) Lymphocytes # (Auto) 0.7 x10^3/uL (1.0-4.8) L Monocytes # (Auto) 0.8 x10^3/uL (0.0-1.1) Eosinophils # (Auto) 0.0 x10^3/uL (0.0-0.7) Basophils # (Auto) 0.0 x10^3/uL (0.0-0.2) Sodium Level 131 mmol/L (136-145) L Potassium Level 3.6 mmol/L (3.5-5.1) Chloride Level 97 mmol/L (98-107) L Carbon Dioxide Level 25 mmol/L (21-32) Anion Gap 9 (6-14) Blood Urea Nitrogen 13 mg/dL (7-20) Creatinine 0.9 mg/dL (0.6-1.0) Estimated GFR (Cockcroft-Gault) 84.8 BUN/Creatinine Ratio 14 (6-20) Glucose Level 95 mg/dL (70-99) Calcium Level 8.5 mg/dL (8.5-10.1) Total Bilirubin 0.3 mg/dL (0.2-1.0) Aspartate Amino Transferase (AST) 22 U/L (15-37) Alanine Aminotransferase (ALT) 48 U/L (14-59) Alkaline Phosphatase 81 U/L (46-116) Total Protein 8.1 g/dL (6.4-8.2) Albumin 3.7 g/dL (3.4-5.0) Albumin/Globulin Ratio 0.8 (1.0-1.7) L Lipase 48 U/L (73-393) L Influenza Type A Antigen Negative (NEGATIVE) Influenza Type B Antigen Negative (NEGATIVE) SARS-CoV-2 Antigen (Rapid) Positive (NEGATIVE) *A Laboratory Tests 05/25/21 14:24 Laboratory Tests 05/25/21 14:24 Microbiology 05/25/21 Wet Prep - Final, Complete Vital Signs: Vital Signs Date Time Temp Pulse Resp B/P (MAP) Pulse Ox O2 Delivery O2 Flow Rate FiO2 05/25/21 13:12 98.8 126 20 116/67 (83) 99 Room Air 98.8 EKG: EKG: [] Radiology/Procedures: Radiology/Procedures: [] Course & Med Decision Making: Course & Med Decision Making Pertinent Labs and Imaging studies reviewed. (See chart for details) 36-year-old female, vital signs reviewed, presents emergency department concerning sore throat and abdominal pain, symptoms started 2 days ago. Physical examination concerning for viral illness, will order CBC, CMP, lipase, urinalysis assay to rule out acute abdominal process versus urinary tract infection versus STI. Patient does not have STI concerns. Rapid flu, rapid strep, rapid COVID testing with COVID PCR. Will give patient ibuprofen for throat discomfort. After period of time, reevaluation of the patient, patient reports relief of throat discomfort. Discussed with patient positive for COVID-19 virus. Patient's urine positive for trichomonas, wet prep otherwise negative for bacterial vaginosis and yeast, GC chlamydia cultures pending, discussed with patient safe sex practices at home, patient reports she has only single partner, discussed with patient having partners treated for trichomonas for discussed with patient concern for urinary tract infection, will prophylactically treat for GC/chlamydia. Patient gave verbal understanding of and is amenable to ED planning Discussed with the patient all findings and diagnostic testing as well as the need to follow-up with their primary care provider for further evaluation and treatment or return to the ED if any new or worsening symptoms. Strict return precautions were also discussed at length, the patient voiced understanding and agreement with the discharge planning. The patient was nontoxic in appearance, in no apparent distress, and hemodynamically stable at the time of disposition. Dragon Disclaimer: Dragon Disclaimer: This electronic medical record was generated, in whole or in part, using a voice recognition dictation system. Departure Departure Impression: Primary Impression: COVID-19 virus infection Additional Impressions: Urinary tract infection Qualified Codes: N39.0 - Urinary tract infection, site not specified Trichomonal cystitis and urethritis Abdominal pain Qualified Codes: R10.84 - Generalized abdominal pain Disposition: HOME / SELF CARE / HOMELESS Condition: GOOD Referrals: UNKNOWN PCP NAME (PCP) Patient Instructions: Abdominal Pain, Trichomoniasis, Urinary Tract Infection Additional Instructions: You were seen in the emergency department today for sore throat symptoms. Abdominal pain. Your lab work did not show concerning signs for flu or strep throat. However as we discussed your COVID-19 test came back positive, I have attached COVID-19 virus home care instructions to this document please review. As we also discussed, your urinalysis did show a urinary tract infection along with trichomonas infection. I am prescribing to antibiotics please take as directed until completed. Please practice condom barrier sex to help prevent the spread of sexually transmitted diseases. Have your sexual partner treated for trichomonas. Because you were unaware of the sexually transmitted disease, you were also treated for gonorrhea and chlamydia, these test were not positive today they are pending in the lab. Please follow-up with your primary care phys ician for ongoing treatment of COVID-19 virus symptoms, you may use prac-tza-[id number] Tylenol and/or Motrin for ongoing discomfort from the COVID-19 virus, stay well-hydrated. Thank you for visiting our Emergency Department. It was a pleasure taking care of you today in the emergency department and we appreciate you trusting us with your care. If any additional problems come up don't hesitate to return to visit us. Please follow up with your primary care provider so they can plan additional care if needed and know about the problem that you had. If symptoms worsen come back to the Emergency Department. Any concerning symptoms that start such as chest pain, shortness of air, weakness or numbness on one side of the body, running high fevers or any other concerning symptoms return to the ER. You have been tested for or diagnosed with COVID-19. It is an infection caused by a new type of coronavirus. COVID-19 will cause cold-like or mild flu symptoms in most. It can cause more severe symptoms like problems breathing in some. There is no treatment for COVID-19. The body will clear the infection over time. Self-care will help to ease discomfort. Steps to Take: Self-Care Rest as needed. Healthy habits may help you feel better. Steps include: Choose healthy foods including fruits and vegetables. Drink water throughout the day. Get plenty of sleep each night. If you smoke, try to quit. It may ease breathing. Avoid alcohol. Keep Others Healthy The virus can spread to others. Droplets are released every time you sneeze or cough. The droplets can get into the mouth, nose, or eyes of people near you and lead to infection. To lower the chances of spreading COVID-19 to others: Stay at home until your doctor has said it is safe to leave. If you tested positive this will mean staying isolated until both of the following are true: At least 7 days have passed since the start of illness. You are free of fever for at least 72 hours without the use of medicine. During this time: - Avoid public areas, events, or transportation. Do not return to work or school until your doctor has said it is safe to do so. - Call ahead if you need to go to a medical center. Let them know you may have COVID-19. It will help them guide you where to go. They may also ask you to wear a facemask when you come to the office. - If you call for emergency medical services, let them know you may have COVID- 19. While at home: - Try to avoid close contact with others. Stay about 6 feet away. - If possible, spend most of your time in a separate room from others. - Use a face mask if you will be in close contact with others such as sharing a room or vehicle. - Have someone wipe down common surfaces in the home. Use household backhaul driver every day on areas like doorknobs, counters, or sinks. - Cough or sneeze into a tissue. Throw the tissue away right after use. If a tissue is not available, cough or sneeze into your elbow. - Wash your hands often. Wash them after sneezing or coughing. Use soap and water and wash for at least 20 seconds. Alcohol based hand shafting cleaner can be used if soap and water is not available. - Do not prepare food for others. Avoid sharing personal items like forks, spoons, or toothbrushes. - Avoid close contact with pets while you are sick. There is no evidence of the virus passing to pets. This is a safety step until more is known about this virus. Isolation can be frustrating. Social interaction can help. Keep in touch with friends and family through phone and tech options. You can still interact with others in your home, just keep a safe distance of about 6 feet. Follow-up: Your doctors office will check in with you to see if there are any changes in your health. You may be asked to keep track of symptoms to share with them. They will also let you know when you are clear to be in public again. Problems to Look Out For: Contact your doctor if your recovery is not going as you expect. Get emergency care if you have problems such as: - Trouble breathing - Nonstop chest pain or pressure - Changes in awareness, confusion, or problems waking - Lips or face have bluish color - Worsening of symptoms If you think you have an emergency, call for emergency medical services right away. As taken from [employer] [facility] Metronidazole (METRONIDAZOLE) 500 Mg Tablet 1 TAB PO BID for STI for 7 Days, #14 TAB 0 Refills Prov: AGUS SOLORIO CUSTOMER CARE AGENT 05/25/21 Doxycycline Hyclate (DOXYCYCLINE HYCLATE) 100 Mg Capsule 1 CAP PO BID for STI, #14 CAP 0 Refills Prov: AGUS SOLORIO CUSTOMER CARE AGENT 05/25/21 Cephalexin (CEPHALEXIN) 500 Mg Tablet 1 TAB PO BID for urinary tract infection for 7 Days, #14 TAB 0 Refills Prov: AGUS SOLORIO APRN 05/25/21 AGUS SOLORIO APRN May 25, 2021 17:43
[2021-05-25] MEDS ORDERED: cefTRIAXone IM 500 MG VIAL. IM ONE (17:45)
== END 2021-05-25 18:08 | disposition home or self-care (01) ==
LOC: ER 12:45
DX: U07.1 COVID-19 (principal); N39.0 Urinary tract infection, site not specified; A59.03 Trichomonal cystitis and urethritis; R10.84 Generalized abdominal pain; K58.9 Irritable bowel syndrome, unspecified; Z90.89 Acquired absence of other organs; Z90.710 Acquired absence of both cervix and uterus; Z88.5 Allergy status to narcotic agent
CPT/HCPCS: 36415; 80053; 81001; 83690; 85025; 87086; 87428; 87491; 87591; 96361; 96372; 96374; 99283; J0696; J2405; J7030; Q0111; 87880

== ENCOUNTER 2021-06-18 00:44 | Emergency (ER) | payer MEDICAID ==
[~2021-06-18] VITALS: Ht 172.7 cm; Wt 80.4 kg
[~2021-06-18 00:44] MED LIST changes: +DOXY100C3 PO; +METR-34 PO
--- NOTE | 2021-06-18 00:48 | PHYS DOC ---
Past Medical History Past Medical History: Anxiety, Depression, IBS, Other Additional Past Medical Histor: CHRONIC STOMACH PROBLEMS,PTSD, Past Surgical History: Appendectomy, Hysterectomy Additional Past Surgical Histo: d&C Smoking Status: Never Smoker Alcohol Use: None Drug Use: None General Adult HPI: HPI: Patient is a 36 year old female who presents with about 4-day history of mid sternal chest pain, which she describes as burning and sharp. The pain is intermittent. She does report some radiation up to her throat, and she describes a burning sensation in her throat. She denies dyspnea, pleuritic pain, cough, hemoptysis, dizziness, diaphoresis. She denies abdominal pain. She denies nausea or vomiting. She reports that she has a history of acid reflux, and symptoms of her acid reflux frequently feel like this, though she more frequently does have epigastric abdominal pain, which is absent at this time. She reports that she has had some palpitations, and she has recently been seen by her primary care doctor at , and has had an elevated heart rate. She reports that they do not know why her heart rate is elevated. She denies recent surgery, travel, hospitalization. No lower extremity pain or swelling. No syncope or near syncope. No exertional chest pain or exertional dyspnea. She takes Protonix and jwtf-scr-wkdtpsm Tums for her acid reflux symptoms. She has been vaccinated against Covid. Review of Systems: Review of Systems: Constitutional: Denies fever or chills. [] HENT: Denies nasal congestion or sore throat. [] Respiratory: Denies cough or hemoptysis. Denies dyspnea, dyspnea exertion. Cardiovascular: Sharp chest pain. Denies peripheral edema,, denies syncope. GI: Denies abdominal pain, nausea, vomiting : Denies urinary symptoms Musculoskeletal: Denies back pain or joint pain. [] Integument: Denies rash. [] Neurologic: Denies headache, focal weakness or sensory changes. Denies dizziness or syncope Psychiatric: Denies depression or anxiety. [] Heart Score: C/O Chest Pain: Yes HEART Score for Chest Pain: HEART Score for Chest Pain Response (Comments) Value History Slighlty/Non-Suspicious 0 ECG Nonspecific Repolarizatio 1 Age < 45 0 Risk Factors No Risk Factors 0 Total 1 Risk Factors: Risk Factors: DM, Current or recent (<one month) smoker, HTN, HLP, family history of CAD, obesity. Risk Scores: Score 0 - 3: 2.5% MACE over next 6 weeks - Discharge Home Score 4 - 6: 20.3% MACE over next 6 weeks - Admit for Clinical Observation Score 7 - 10: 72.7% MACE over next 6 weeks - Early Invasive Strategies Allergies: Allergies: Allergies Coded Allergies Type Severity Reaction Last Updated Verified morphine Allergy Severe Anaphylaxis 05/25/13 Yes Physical Exam: PE: Constitutional: Well developed, well nourished, no acute distress, non-toxic appearance. [] HENT: Normocephalic, atraumatic Eyes: Conjunctiva normal, no discharge. [] Neck: Normal range of motion, no tenderness, supple, no stridor. Trachea midline. No JVD. No thyromegaly. Cardiovascular: Tachycardic, regular, +2 radial and +2 posterior tibial pulses bilaterally Lungs & Thorax: Bilateral breath sounds clear to auscultation, equal chest rise, no rales, rhonchi, wheezes, no stridor. No tachypnea or retractions. No evidence of distress Abdomen: Felisha is soft, nondistended, nontender to palpation Skin: Warm, dry, no erythema, no rash. [] Back: No tenderness, no CVA tenderness. [] Extremities: No tenderness, no cyanosis, no clubbing, ROM intact, no edema. No calf tenderness. Neurologic: Alert and oriented X 3, normal motor function, normal sensory function, no focal deficits noted. No tremor. Psychologic: Affect normal, judgement normal, mood normal. [] EKG: EKG: EKG is interpreted at 0057 Rhythm is sinus tachycardia Rate is 120 bpm Benjamin is left No STEMI Radiology/Procedures: Radiology/Procedures: IMAGING REPORT Signed PATIENT: JULIANNE AGUILAR ACCOUNT: [id number] : 1985 LOCATION: ER AGE: 36 SEX: F EXAM STATUS: REG ER ORD. PHYSICIAN: LENNIE PONCE DO REASON: chest pain, tachycardia, elevated dimer, OMNI 350 100 ML IV PROCEDURE: CT ANGIOGRAPHY CHEST CTA Chest with contrast: Clinical History: Reason: chest pain, tachycardia, elevated dimer, OMNI 350 100 ML IV / Spl. Instructions: / History: Shortness of breath. Axial helical images of the chest were obtained after the administration of 100 cc of IV Omnipaque 350 and timed appropriately for a pulmonary arterial study. Conventional axial reconstruction was performed in addition to coronal, sagittal and bilateral oblique MIP (maximum intensity projection). This study was ordered to detect possible pulmonary embolism. There are no filling defects to suggest pulmonary embolism. There is patchy opacities in the lung bases. There is no mediastinal or hilar lymphadenopathy. The thoracic aorta appears normal. Impression: 1. No evidence of pulmonary embolism. 2. Basilar pulmonary infiltrates likely discoid atelectasis. End of impression PQRS Compliance Statement: One or more of the following individualized dose reduction techniques were utilized for this examination: 1. Automated exposure control 2. Adjustment of the mA and/or kV according to patient size 3. Use of iterative reconstruction technique Electronically signed by: Vikas Og III, MD (06/18/2021 3:52 AM) [facility] DICTATED and SIGNED BY: VIKAS OG III, MD DATE: 06/18/21 [id number] 0 Course & Med Decision Making: Course & Med Decision Making Pertinent Labs and Imaging studies reviewed. (See chart for details) The patient is given a GI cocktail, she reports feeling much better. CT angio is negative for pulmonary embolus. She still manifest some tachycardia, though her heart rate is in the low 100s. She is not symptomatic of any palpitations. I have discussed all of the findings, differential diagnosis and plan of care with her. EKG is nonischemic, troponin is negative, CT is negative for PE. I recommend she contact her PCP for follow-up, she may wish to discuss outpatient cardiology and GI follow-up as well. She reports that she will contact her PCP this week to discuss this. She feels much better, she feels comfortable to plan for discharge home. Strict return precautions are given. She verbalized understanding. She is discharged in stable condition. Izzy Disclaimer: Izzy Disclaimer: This electronic medical record was generated, in whole or in part, using a voice recognition dictation system. Departure Departure Impression: Primary Impression: Atypical chest pain Disposition: HOME / SELF CARE / HOMELESS Condition: STABLE Referrals: UNKNOWN PCP NAME (PCP) Patient Instructions: Chest Pain (Nonspecific), Diet for Gastroesophageal Reflux Disease, Adult Additional Instructions: Please return to the ER for more severe pain, coughing up blood, shortness of breath, fever 100.4 or higher, uncontrolled vomiting, severe abdominal pain or for any other concerns. Please contact your primary care doctor at . You may need to go back to see GI, you may wish to have an EGD for further evaluation of your symptoms. Continue taking your medications as directed. LENNIE PONCE DO Jun 18, 2021 00:48
[2021-06-18 01:19] LABS: BASO % 0 % (0-3); EOS % 0 % (0-3); HEMATOCRIT 33.1 % (36.0-47.0); HEMOGLOBIN 10.7 g/dL (12.0-15.5); LYMPH # 2.4 x10^3/uL (1.0-4.8); LYMPH % 20 % (24-48); MEAN CORPUSCULAR HEMOGLOBIN 30 pg (25-35); MEAN CORPUSCULAR HGB CONC 32 g/dL (31-37); MEAN CORPUSCULAR VOLUME 93 fL (79-100); MONO # 1.2 x10^3/uL (0.0-1.1); MONO % 10 % (0-9); NEUT # 8.4 x10^3/uL (1.8-7.7); NEUT % 70 % (31-73); PLATELET COUNT 310 x10^3/uL (140-400); RED BLOOD COUNT 3.57 x10^6/uL (3.50-5.40); RED CELL DISTRIBUTION WIDTH 13.7 % (11.5-14.5); WHITE BLOOD COUNT 12.1 x10^3/uL (4.0-11.0)
[2021-06-18 01:30] LABS: CALCIUM 8.1 mg/dL (8.5-10.1); CREATININE 0.9 mg/dL (0.6-1.0); GFR 84.8; POTASSIUM 3.5 mmol/L (3.5-5.1)
[2021-06-18] MEDS ORDERED: IV NORMAL SALINE 1000ML BAG 1,000 ML IV ONE (01:30)
[2021-06-18] MEDS ORDERED: LIDO:MAALOX 1:1 20 ML SINGLE DOSE. SWSW ONE (01:30)
[2021-06-18 01:33] LABS: ALBUMIN 3.2 g/dL (3.4-5.0); ALBUMIN/GLOBULIN RATIO 0.9 (1.0-1.7); MAGNESIUM 1.7 mg/dL (1.8-2.4); TOTAL BILIRUBIN 0.1 mg/dL (0.2-1.0); TOTAL PROTEIN 6.9 g/dL (6.4-8.2)
[2021-06-18] MEDS ORDERED: CONTRAST GIVEN. MC PRN (02:15)
[2021-06-18] MEDS ORDERED: IOHEXOL 350 MG/ML 100 ML VIAL. IV ONE (02:30)
--- NOTE | 2021-06-18 02:33 | EKG ---
[facility] [address] [place] [address] Test Date: 2021-06-18 Test Time: 00:53:12 Pat Name: JULIANNE AGUILAR Department: Room: Gender: F Field Secretary: : 1985 Requested By: LENNIE PONCE Order Number: [id number] Reading MD: Alber Crockett MD Measurements Intervals [place] Rate: 119 P: 49 [place]: 146 QRS: -6 QRSD: 68 T: 24 QT: 294 QTc: 420 Interpretive Statements SINUS TACHYCARDIA Electronically Signed On 06-20-2021 8:26:20 JAILER/TRAINING OFFICER by Alber Crockett MD
--- NOTE | 2021-06-18 02:34 | EKG ---
[facility] [address] [place] [address] Test Date: 2021-06-18 Test Time: 00:55:52 Pat Name: JULIANNE AGUILAR Department: Room: Gender: F Splitting Machine Operator: : 1985 Requested By: LENNIE PONCE Order Number: [id number] Reading MD: Alber Crockett MD Measurements Intervals [place] Rate: 120 P: 48 [place]: 132 QRS: -9 QRSD: 70 T: 24 QT: 312 QTc: 446 Interpretive Statements SINUS TACHYCARDIA Electronically Signed On 06-20-2021 8:26:06 ENGINEERING VICE PRESIDENT by Alber Crockett MD
--- NOTE | 2021-06-18 03:54 | RAD ---
CTA Chest with contrast: Clinical History: Reason: chest pain, tachycardia, elevated dimer, OMNI 350 100 ML IV / Spl. Instruct ions: / History: Shortness of breath. Axial helical images of the chest were obtained after the administration of 100 cc of IV Omnipaque 35 0 and timed appropriately for a pulmonary arterial study. Conventional axial reconstruction was perf ormed in addition to coronal, sagittal and bilateral oblique MIP (maximum intensity projection). Thi s study was ordered to detect possible pulmonary embolism. There are no filling defects to suggest pulmonary embolism. There is patchy opacities in the lung bases. There is no mediastinal or hilar lymphadenopathy. The thoracic aorta appears normal. Impression: 1. No evidence of pulmonary embolism. 2. Basilar pulmonary infiltrates likely discoid atelectasis. End of impression PQRS Compliance Statement: One or more of the following individualized dose reduction techniques were utilized for this examinat ion: 1. Automated exposure control 2. Adjustment of the mA and/or kV according to patient size 3. Use of iterative reconstruction technique Electronically signed by: Alfie Richardson III, MD (06/18/2021 3:52 AM) [facility]
[2021-06-18 03:56] VITALS: BP 124/80
--- NOTE | 2021-06-18 06:27 | RAD ---
XR CHEST 1V Clinical History: Reason: chest pain / Spl. Instructions: / History: Technique: AP view of the chest was obtained at 06/18/2021 1:19 AM. Comparison: None. Findings: The cardiomediastinal silhouette is normal. The pulmonary vasculature is normal. The lungs and pleura l margins are clear. Impression: No evidence of an acute cardiopulmonary process. Electronically signed by: Alfie Richardson III, MD (06/18/2021 6:24 AM) [facility]
== END 2021-06-18 04:25 | disposition home or self-care (01) ==
LOC: ER 00:44
DX: R07.2 Precordial pain (principal); J39.2 Other diseases of pharynx; K58.9 Irritable bowel syndrome, unspecified; F43.10 Post-traumatic stress disorder, unspecified; Z88.5 Allergy status to narcotic agent
CPT/HCPCS: 36415; 71045; 71275; 80053; 83690; 83735; 84443; 84484; 85025; 85379; 93005; 96360; 96361; 99285; J7030; Q9967